=== PATIENT | female | born 1995 | race Caucasian/White ===

== ENCOUNTER 2020-03-22 20:47 | Emergency (ER) | payer OTHER ==
[2020-03-22] MEDS ORDERED: Sodium Chloride 0.9% 10 ML Syringe FLUSH PRN (22:25)
[2020-03-22] MEDS ORDERED: Ondansetron 4 MG/2 ML SDV IVPUSH ONE (22:25)
[2020-03-22] MEDS ORDERED: Lactated Ringers 1,000 ML IV ONE (22:25)
[2020-03-22] MEDS ORDERED: Morphine 4 MG/ML Syringe IVPUSH ONE (22:25)
[2020-03-22] MEDS ORDERED: Sodium Chloride 0.9% 2.5 ML Syringe FLUSH PRN (22:25)
--- NOTE | 2020-03-22 22:25 | CR ---
Indication: Chest pain Technique: Chest 1 view Comparison: None Findings/Impression: Cardiovascular and mediastinum: Heart size and vasculature are normal in caliber and appearance. Lungs and pleural space: Lungs are clear. No sign of infiltrate or mass. No sign of pleural effusion. No pneumothorax. Bones and soft tissues: No acute findings. Dictated by Gage Cardenas MD @ Mar 22 2020 10:18PM Signed by Dr. Gage Cardenas @ Mar 22 2020 10:24PM
--- NOTE | 2020-03-22 22:30 | EDM.PDOC ---
ED HPI GENERAL MEDICAL PROBLEM - General Chief Complaint: Chest Pain Stated Complaint: CHEST PAIN,FEELS FAINT Time Seen by Provider: 03/22/20 21:24 Source of Information: Reports: Patient History Limitations: Reports: No Limitations - History of Present Illness INITIAL COMMENTS - FREE TEXT/NARRATIVE: 24-year-old female with history of celiac disease, IBS presents here with 2 co mplaints. Her first complaint is chest pain that started 5 days ago that is diffuse and intermittent. She currently is chest pain-free. Associated with shortness of breath. Her secondary complaint is diffuse abdominal pain that is severe rated 10/10, described as sharp aching sensation that started this morning. Pain waxes and wanes and is currently rated 6/10. She denies fever, chills, dysuria, vomiting. She admits to nausea and sweats. Her PCP is in [place] and she currently does not have a PCP here. ROS: A 10-point review of systems, other than pertinent positives and negatives as stated per HPI, is otherwise negative Past medical history: No additional pertinent history Past Surgical history: No additional pertinent history Social history: No additional pertinent history Family history: No additional pertinent history PHYSICAL EXAM General: AOx4, GCS = 15, mild distress HEENT: dry mucous membrane Neck: supple, no meningismus, no Kernig or Brudzinski Cardiac: S1S2 RRR Respiratory: CTAB, no crackles or rales, no wheezing Abdomen: Soft, nontender, no rebound or guarding, nondistended, no pulsatile mass. Back: nontender Musculoskeletal: NVI distally, no deformity Neuro: No focal deficits, CN 2 - 12 WNL. across chest Pain Score (Numeric/FACES): 4 - Related Data Allergies Allergy/AdvReac Type Severity Reaction Status Date / Time corn Allergy Abdominal Verified 03/22/20 21:05 Pain gluten Allergy Other Verified 03/22/20 21:05 Home Meds: Home Meds Magnesium Citrate 295 ml PO BID #1 bottle 03/23/20 [Rx] Past Medical History Gastrointestinal History: Reports: Other (See Below) Other Gastrointestinal History: Celiac Disease Neurological History: Reports: Other (See Below) Other Neuro History: Arachnoid Cyst - Past Surgical History GI Surgical History: Reports: Colonoscopy, EGD Social & Family History - Family History Family Medical History: No Pertinent Family History - Tobacco Use Tobacco Use Status *Q: Never Tobacco User - Recreational Drug Use Recreational Drug Use: Yes Drug Use in Last 12 Months: Yes Recreational Drug Type: Reports: Marijuana/Hashish Recreational Drug Use Frequency: Monthly ED ROS GENERAL - Review of Systems Review Of Systems: See Below (see dictation) ED EXAM, GENERAL - Physical Exam Exam: See Below (see dictation) #1 Interpretation EKG Interpretation Comments: Heart rate = 89 bpm, normal sinus rhythm, normal QRS interval, no STEMI. EKG and rhythm strip interpreted by me at 2108 Course - Vital Signs Last Recorded V/S: Last Vital Signs Temp 98.4 F 03/22/20 21:01 Pulse 71 03/23/20 01:27 Resp 14 03/23/20 01:27 BP 110/78 03/23/20 01:27 Pulse Ox 96 03/23/20 01:27 - Orders/Labs/Meds Orders: Active Orders 24 hr Category Date Time Status Cardiac Monitoring [RC] . DIRECTED Care 03/22/20 22:25 Active EKG Documentation Completion [RC] STAT Care 03/22/20 21:48 Active Pulse Oximetry [RC] ASDIRECTED Care 03/22/20 22:25 Active Sodium Chloride 0.9% [Saline Flush] Med 03/22/20 22:25 Active 10 ml FLUSH ASDIRECTED PRN Sodium Chloride 0.9% [Saline Flush] Med 03/22/20 22:25 Active 2.5 ml FLUSH ASDIRECTED PRN Saline Lock Insert [OM.PC] Stat Oth 03/22/20 22:25 Ordered Medication Orders Sodium Chloride (Saline Flush) 10 ml FLUSH ASDIRECTED PRN PRN Reason: Keep Vein Open Sodium Chloride (Saline Flush) 2.5 ml FLUSH ASDIRECTED PRN PRN Reason: Keep Vein Open Labs: Laboratory Tests 03/22/20 03/22/20 03/22/20 Range/Units 23:05 23:05 23:05 WBC 9.00 (4.0-11.0) K/uL RBC 4.36 (4.30-5.90) M/uL Hgb 13.4 (12.0-16.0) g/dL Hct 39.6 (36.0-46.0) % MCV 90.8 (80.0-98.0) fL MCH 30.7 (27.0-32.0) pg MCHC 33.8 (31.0-37.0) g/dL RDW Std Deviation 42.1 (28.0-62.0) fl RDW Coeff of Tracey 13 (11.0-15.0) % Plt Count 214 (150-400) K/uL MPV 10.80 (7.40-12.00) fL Neut % (Auto) 69.5 (48.0-80.0) % Lymph % (Auto) 21.4 (16.0-40.0) % Highland % (Auto) 5.7 (0.0-15.0) % Eos % (Auto) 3.3 (0.0-7.0) % Baso % (Auto) 0.1 (0.0-1.5) % Neut # (Auto) 6.3 H (1.4-5.7) K/uL Lymph # (Auto) 1.9 (0.6-2.4) K/uL Highland # (Auto) 0.5 (0.0-0.8) K/uL Eos # (Auto) 0.3 (0.0-0.7) K/uL Baso # (Auto) 0.0 (0.0-0.1) K/uL Nucleated RBC % 0.0 /100WBC Nucleated RBCs # 0 K/uL Lactate 0.8 (0.20-2.00) mmol/L Sodium 142 (136-145) mmol/L Potassium 3.8 (3.5-5.1) mmol/L Chloride 106 (98-107) mmol/L Carbon Dioxide 24.9 (21.0-32.0) mmol/L BUN 10 (7.0-18.0) mg/dL Creatinine 0.9 (0.6-1.0) mg/dL Est Cr Clr Drug Dosing 88.23 mL/min Estimated GFR (MDRD) > 60.0 ml/min Glucose 84 (74-106) mg/dL Calcium 8.3 L (8.5-10.1) mg/dL Phosphorus 4.4 (2.6-4.7) mg/dL Magnesium 1.9 (1.8-2.4) mg/dL Total Bilirubin 0.4 (0.2-1.0) mg/dL AST 12 L (15-37) IU/L ALT 19 (14-63) IU/L Alkaline Phosphatase 58 (46-116) U/L Troponin I < 0.050 (0.000-0.056) ng/mL Total Protein 7.2 (6.4-8.2) g/dL Albumin 4.0 (3.4-5.0) g/dL Globulin 3.2 (2.6-4.0) g/dL Albumin/Globulin Ratio 1.3 (0.9-1.6) Lipase 176 (73-393) U/L Urine Color Urine Appearance Urine pH (5.0-8.0) Ur Specific Girard (1.001-1.035) Urine Protein (NEGATIVE) mg/dL Urine Glucose (UA) (NEGATIVE) mg/dL Urine Ketones (NEGATIVE) mg/dL Urine Occult Blood (NEGATIVE) Urine Nitrite (NEGATIVE) Urine Bilirubin (NEGATIVE) Urine Urobilinogen (<2.0) EU/dL Ur Leukocyte Esterase (NEGATIVE) Urine RBC (0-2/HPF) Urine WBC (0-5/HPF) Ur Epithelial Cells (NONE-FEW) Urine Bacteria (NEGATIVE) Urine HCG, Qual (NEGATIVE) Urine Opiates Screen (NEGATIVE) Ur Oxycodone Screen (NEGATIVE) Urine Methadone Screen (NEGATIVE) Ur Barbiturates Screen (NEGATIVE) Ur Phencyclidine Scrn (NEGATIVE) Ur Amphetamine Screen (NEGATIVE) U Methamphetamines Scrn (NEGATIVE) U Benzodiazepines Scrn (NEGATIVE) U Cocaine Metab Screen (NEGATIVE) U Marijuana (THC) Screen (NEGATIVE) 03/22/20 03/22/20 03/22/20 Range/Units 23:20 23:20 23:20 WBC (4.0-11.0) K/uL RBC (4.30-5.90) M/uL Hgb (12.0-16.0) g/dL Hct (36.0-46.0) % MCV (80.0-98.0) fL MCH (27.0-32.0) pg MCHC (31.0-37.0) g/dL RDW Std Deviation (28.0-62.0) fl RDW Coeff of Tracey (11.0-15.0) % Plt Count (150-400) K/uL MPV (7.40-12.00) fL Neut % (Auto) (48.0-80.0) % Lymph % (Auto) (16.0-40.0) % Highland % (Auto) (0.0-15.0) % Eos % (Auto) (0.0-7.0) % Baso % (Auto) (0.0-1.5) % Neut # (Auto) (1.4-5.7) K/uL Lymph # (Auto) (0.6-2.4) K/uL Highland # (Auto) (0.0-0.8) K/uL Eos # (Auto) (0.0-0.7) K/uL Baso # (Auto) (0.0-0.1) K/uL Nucleated RBC % /100WBC Nucleated RBCs # K/uL Lactate (0.20-2.00) mmol/L Sodium (136-145) mmol/L Potassium (3.5-5.1) mmol/L Chloride (98-107) mmol/L Carbon Dioxide (21.0-32.0) mmol/L BUN (7.0-18.0) mg/dL Creatinine (0.6-1.0) mg/dL Est Cr Clr Drug Dosing mL/min Estimated GFR (MDRD) ml/min Glucose (74-106) mg/dL Calcium (8.5-10.1) mg/dL Phosphorus (2.6-4.7) mg/dL Magnesium (1.8-2.4) mg/dL Total Bilirubin (0.2-1.0) mg/dL AST (15-37) IU/L ALT (14-63) IU/L Alkaline Phosphatase (46-116) U/L Troponin I (0.000-0.056) ng/mL Total Protein (6.4-8.2) g/dL Albumin (3.4-5.0) g/dL Globulin (2.6-4.0) g/dL Albumin/Globulin Ratio (0.9-1.6) Lipase (73-393) U/L Urine Color YELLOW Urine Appearance CLEAR Urine pH 7.5 (5.0-8.0) Ur Specific Girard 1.015 (1.001-1.035) Urine Protein NEGATIVE (NEGATIVE) mg/dL Urine Glucose (UA) NEGATIVE (NEGATIVE) mg/dL Urine Ketones NEGATIVE (NEGATIVE) mg/dL Urine Occult Blood TRACE-INTACT H (NEGATIVE) Urine Nitrite NEGATIVE (NEGATIVE) Urine Bilirubin NEGATIVE (NEGATIVE) Urine Urobilinogen 0.2 (<2.0) EU/dL Ur Leukocyte Esterase NEGATIVE (NEGATIVE) Urine RBC 0-2 (0-2/HPF) Urine WBC 0-1 (0-5/HPF) Ur Epithelial Cells MODERATE (NONE-FEW) Urine Bacteria FEW (NEGATIVE) Urine HCG, Qual NEGATIVE (NEGATIVE) Urine Opiates Screen NEGATIVE (NEGATIVE) Ur Oxycodone Screen NEGATIVE (NEGATIVE) Urine Methadone Screen NEGATIVE (NEGATIVE) Ur Barbiturates Screen NEGATIVE (NEGATIVE) Ur Phencyclidine Scrn NEGATIVE (NEGATIVE) Ur Amphetamine Screen NEGATIVE (NEGATIVE) U Methamphetamines Scrn NEGATIVE (NEGATIVE) U Benzodiazepines Scrn NEGATIVE (NEGATIVE) U Cocaine Metab Screen NEGATIVE (NEGATIVE) U Marijuana (THC) Screen NEGATIVE (NEGATIVE) Meds: Medications Generic Name Dose Route Start Last Admin Trade Name Freq PRN Reason Stop Dose Admin Sodium Chloride 10 ml 03/22/20 22:25 Saline Flush FLUSH ASDIRECTED PRN Keep Vein Open Sodium Chloride 2.5 ml 03/22/20 22:25 Saline Flush FLUSH ASDIRECTED PRN Keep Vein Open Discontinued Medications Generic Name Dose Route Start Last Admin Trade Name Freq PRN Reason Stop Dose Admin Dicyclomine HCl 20 mg 03/22/20 22:25 03/22/20 23:11 Bentyl PO 03/22/20 22:26 Not Given ONETIME ONE Lactated Ringer's 1,000 mls @ 999 mls/hr 03/22/20 22:25 03/22/20 23:05 Ringers, Lactated IV 03/22/20 23:25 999 mls/hr .BOLUS ONE Administration Iopamidol 80 ml 03/23/20 00:18 03/23/20 00:19 Isovue Multipack-370 (76%) IVPUSH 03/23/20 00:19 80 ml ONETIME STA Administration Morphine Sulfate 4 mg 03/22/20 22:25 03/22/20 23:09 Morphine IVPUSH 03/22/20 22:26 2 mg ONETIME ONE Administration Ondansetron HCl 4 mg 03/22/20 22:25 03/22/20 23:07 Zofran IVPUSH 03/22/20 22:26 4 mg ONETIME ONE Administration - Re-Assessments/Exams Free Text/Narrative Re-Assessment/Exam: 03/23/20 02:16 After IV fluids and pain meds in the ER, the patient improved and is currently stable for discharge. I performed a repeat exam and did not appreciate new abnormal findings. Patient exhibits normal vital signs and has a normal gait on road test. I advised the patient to return to the ER for reevaluation if symptoms worsened, including fever, worsening pain, or any other worrisome symptoms. I instructed the patient to follow up with their PCP within 2-3 days. MEDICAL DECISION MAKING: I reviewed the patients past medical records, lab and radiographic findings. I discussed the case with the patient. My differential diagnosis included: Ovarian cyst, constipation, IBS. Patient's initial complaint of chest pain is a 5-day history, today her EKG and her troponin were unremarkable, I do not suspect atypical chest pain. Her heart score is < 3, she is stable for outpatient follow up and further work-up of her chest pain which has resolved today. In regards to her abdominal pain, her CT demonstrated constipation and a right ovarian cyst, followed up by pelvic ultrasound which demonstrated normal arterial flow. Pain improved in the ER, she is stable for outpatient follow-up with [facility] for further work-up of her right ovarian cyst. Departure - Departure Time of Disposition: 02:19 Disposition: Home, Self-Care 01 Condition: Good Clinical Impression: Abdominal pain, Constipation, Ovarian cyst - Discharge Information *PRESCRIPTION DRUG MONITORING PROGRAM REVIEWED*: Not Applicable *COPY OF PRESCRIPTION DRUG MONITORING REPORT IN PATIENT [place]: Not Applicable Prescriptions: Magnesium Citrate 295 ml PO BID #1 bottle Instructions: Constipation, Adult, Ovarian Cyst, [id number] Referrals: PCP,None [Primary Care Provider] - 1 Week Forms: ED Department Discharge Additional Instructions: The need for follow-up, as well as the timing and circumstances, are variable depending upon the specifics of your emergency department visit. If you don't have a primary care physician on staff, we will provide you with a referral. We always advise you to contact your personal physician following an emergency department visit to inform them of the circumstance of the visit and for follow-up with them and/or the need for any referrals to a consulting specialist. The emergency department will also refer you to a specialist when appropriate. This referral assures that you have the opportunity for follow-up care with a specialist. All of these measure are taken in an effort to provide you with optimal care, which includes your follow-up. Under all circumstances we always encourage you to contact your private physician who remains a resource for coordinating your care. When calling for follow-up care, please make the office aware that this follow-up is from your recent emergency room visit. If for any reason you are refused follow-up, please contact the Emergency Department at and asked to speak to the emergency department charge nurse. If you do not have a primary care doctor, please follow up with the clinics below within 3-5 days. [facility] - Primary Care [address] [place] [address] [place] [address] Sepsis Event Note (ED) - Evaluation Sepsis Screening Result: No Definite Risk - Focused Exam Vital Signs: Vital Signs Temp Pulse Resp BP Pulse Ox 03/23/20 01:27 71 14 110/78 96 03/23/20 00:17 85 14 123/73 94 L 03/22/20 21:01 98.4 F 107 H 16 125/74 99 - My Orders Last 24 Hours: My Active Orders 03/22/20 21:48 EKG Documentation Completion [RC] STAT 03/22/20 22:25 Cardiac Monitoring [RC] . DIRECTED Pulse Oximetry [RC] ASDIRECTED Sodium Chloride 0.9% [Saline Flush] 10 ml FLUSH ASDIRECTED PRN Sodium Chloride 0.9% [Saline Flush] 2.5 ml FLUSH ASDIRECTED PRN Saline Lock Insert [OM.PC] Stat - Assessment/Plan Last 24 Hours: My Active Orders 03/22/20 21:48 EKG Documentation Completion [RC] STAT 03/22/20 22:25 Cardiac Monitoring [RC] . DIRECTED Pulse Oximetry [RC] ASDIRECTED Sodium Chloride 0.9% [Saline Flush] 10 ml FLUSH ASDIRECTED PRN Sodium Chloride 0.9% [Saline Flush] 2.5 ml FLUSH ASDIRECTED PRN Saline Lock Insert [OM.PC] Stat
[2020-03-22] MEDS: Dicyclomine 10 MG Cap PO ONE ×2 (23:06→23:11)
[2020-03-22 23:43] LABS: BLOOD UREA NITROGEN,BUN 10 mg/dL (7.0-18.0); CARBON DIOXIDE,CO2 24.9 mmol/L (21.0-32.0); CHLORIDE,CL 106 mmol/L (98-107); GLUCOSE RANDOM 84 mg/dL (74-106); LIPASE 176 U/L (73-393); POTASSIUM,K 3.8 mmol/L (3.5-5.1); SODIUM,NA 142 mmol/L (136-145)
[2020-03-23] MEDS ORDERED: Iopamidol 755 MG/ML 500 ML Multipack Bottle IVPUSH STA (00:18)
--- NOTE | 2020-03-23 00:35 | CT ---
INDICATION: Abdominal pain. CT ABDOMEN AND PELVIS WITH CONTRAST TECHNIQUE: Multidetector CT imaging was performed through the abdomen and pelvis following intravenous contrast administration using 80 mL Isovue 370. Coronal and sagittal reconstructions were generated. COMPARISON: None. FINDINGS: Lower chest: Lung bases are clear. Liver: Within normal limits. Gallbladder and bile ducts: No gallbladder wall thickening or calcified gallstones. No biliary dilation identified. Pancreas: Unremarkable. Spleen: Normal. Adrenals: No nodules or masses. Kidneys, ureters, and urinary bladder: No renal masses or hydronephrosis. No bladder mass or definite wall thickening. Gastrointestinal tract: Normal caliber bowel without wall thickening or obstruction. The appendix is normal. Large amount of stool throughout the colon suggests constipation. Vascular structures: Normal for age. Peritoneum: Minimal free fluid in the low pelvis. No free air identified in the abdomen or pelvis. Lymph nodes: No pathologically enlarged nodes identified. Reproductive organs: 4.5 x 2.8 x 3.5 centimeter hypodense cystic structure in the right adnexal area may represent a right ovarian cyst. Unremarkable uterus and left ovary. Bones: Normal for age. IMPRESSION: 1. Right adnexal 4.5 x 2.8 x 3.5 centimeter cystic lesion, possibly a right ovarian cyst although ovarian torsion is not entirely excluded. Pelvic ultrasound is suggested for further characterization and to exclude ovarian torsion. 2. Probable constipation. ALEXI SOLORZANO MD [employer] Dictated by Buddy Solorzano MD @ 03/23/2020 12:33:46 AM Dictated by: Buddy Solorzano MD @ 03/23/2020 00:35:09 (Electronically Signed)
--- NOTE | 2020-03-23 02:14 | US ---
INDICATION: Pelvic pain TECHNIQUE: Multiple transvaginal sonographic images of the pelvis. COMPARISON: A CT scan from the same date FINDINGS: Uterus: Retroverted, measuring 6.5 x 3.2 x 4.4 cm. Unremarkable echotexture of the myometrium. No masses. Endometrium: 5 mm in thickness. No sign of endometrial mass or fluid. Right ovary: 4.6 x 2.4 x 4.9 cm. A 3.3 x 3.1 x 3.8 cm right ovarian cyst, containing a small internal daughter cyst and apparent small dependent low level echoes. Normal arterial blood flow. Left ovary: 2.6 x 2.5 x 1.3 cm. No ovarian or adnexal masses. Normal arterial blood flow. Cul-de-sac: Small free fluid. IMPRESSION: A mildly complex, possibly mildly hemorrhagic, 3.8 cm right ovarian cyst. Follow-up in 6 weeks to document resolution. Arterial ovarian Doppler flow documented. Small free fluid. Dictated by Rusty Guzman MD @ Mar 23 2020 2:07AM Signed by Dr. Rusty Guzman @ Mar 23 2020 2:13AM
== END 2020-03-23 02:31 | disposition home or self-care (01) ==
LOC: MW.ED 20:47
DX: N83.291 Other ovarian cyst, right side (principal); K59.00 Constipation, unspecified; Z91.018 Allergy to other foods; Z91.048 Other nonmedicinal substance allergy status
CPT/HCPCS: 36415; 71045; 74177; 76856; 80053; 80305; 81001; 81025; 83605; 83690; 83735; 84100; 84484; 85025; 93005; 96374; 96375; 99285; J2270; J2405; J7120; Q9967; 93010; 99283; A9270-GY